=== PATIENT | female | born 1965 | race Two or more races ===

== ENCOUNTER 2024-10-25 22:43 | Emergency (ER) | payer OTHER ==
[~2024-10-25] VITALS: Ht 170.2 cm; Wt 112.0 kg
[2024-10-25 22:55] VITALS: BP 166/89; O2SAT 100
[2024-10-25] MEDS ORDERED: LOSARTAN POTAS100 MG PO (22:55)
[2024-10-25] MEDS ORDERED: SYNTHROID50 MCG PO (22:55)
[2024-10-25] MEDS ORDERED: DIPHENHYDRAMINE HCL 50 MG/ML VIAL 1ML IV ONE (23:15)
[2024-10-25] MEDS ORDERED: 0.9 % SODIUM CHLORIDE 1,000 ML IV SCH (23:15)
[2024-10-25] MEDS ORDERED: DIPHENHYDRAMINE HCL 50 MG/ML VIAL 1ML ONE (23:20)
[2024-10-25 23:48] LABS: HEMATOCRIT 34.7 % (36.0-45.00); MEAN CORPUSCULAR HEMOGLOBIN 21.1 pg (27.00-32.0); MEAN CORPUSCULAR HGB CONC 31.6 g/dl (32.0-36.0); PLATELET COUNT 238 K/uL (150-450); RED BLOOD COUNT 5.21 M/uL (4.00-6.00); RED CELL DISTRIBUTION WIDTH 16.1 % (11.5-14.5)
[2024-10-25 23:50] LABS: MEAN CELL VOLUME 66.7 fL (80.00-100.00)
[2024-10-26 00:02] LABS: ALBUMIN 3.4 gm/dL (3.4-5.0); BILIRUBIN TOTAL 0.31 mg/dL (0.3-1.2); CALCIUM 8.5 mg/dL (8.5-10.1); CREATININE SERUM 0.96 mg/dL (0.55-1.02); GFR 59.28; GLOBULINA 3.6 G/DL (2.4-3.5); POTASSIUM 3.46 mEq/L (3.5-5.1)
[2024-10-26 01:05] LABS: ABG PH 7.388 (7.35-7.45); ABG PO2 91.5 mmHg (80-100); BASE EXCESS 0 mmol/l; BICARBONATE 25.1 mmol/l (23-25); SaO2 96.9 %; Tco2 26.4 mmol/l; allen test SATISFACTORY; o2 21 %; puncture site RADIAL LEFT
[2024-10-26 01:06] LABS: ABG pCO2 42.6 mmHg (35-45)
[2024-10-26] MEDS ORDERED: ACETAMINOPHEN 500 MG GEL..CAP PO STA (07:40)
[2024-10-26] MEDS ORDERED: PEPCID40 MG PO (07:46)
[2024-10-26] MEDS ORDERED: ZOFRAN8 MG PO (07:46)
[2024-10-26] MEDS ORDERED: ACETAMINOPHEN 500 MG GEL..CAP PO ONE (07:55)
== END 2024-10-26 08:07 ==
LOC: ER 22:43
PROVIDERS: General Practice
DX: F12.929 Cannabis use, unspecified with intoxication, unspecified (principal); I10 Essential (primary) hypertension; F10.929 Alcohol use, unspecified with intoxication, unspecified